=== PATIENT | female | born 1990 | race Caucasian/White ===

== ENCOUNTER 2016-04-26 15:25 | Emergency (ER) | payer MEDICAID ==
[2016-04-26] MEDS ORDERED: DEXAMETHASONE SOD PHOSPHATE 10MG/ML VIAL PO ONE (15:34)
[2016-04-26] MEDS ORDERED: CLINDAMYCIN 150 MG CAP PO ONE (15:34)
[2016-04-26] MEDS ORDERED: IBUPROFEN 600 MG TABLET PO ONE (15:35)
--- NOTE | 2016-04-26 15:42 | Emergency Department Record ---
History of Present Illness - General Chief complaint: Flu Like Symptoms Stated complaint: BODY ACHES Time Seen by Provider: 04/26/16 15:34 Source: Patient, Family Mode of Arrival: Ambulatory Limitations: No limitations - History of Present Illness Initial comments: 26 yo female presents with aches, sore throat and low grade fever starting last night. She noticed swollen glands on the left. No rash. No vomiting or diarrha. She feels tired an her muscles hurt. No cough. No runny nose. She is up to date on her immunizations and she received a flu shot this year. No definite exposures to others with strep or sore throat. Onset/Timin -: Days(s) Location: Generalized Severity: Moderate Severity scale (1-10): 9 Quality: Aching Consistency: Constant Improves with: None Worsens with: None Associated Symptoms: Headaches, Loss of appetite - [place] Coma Scale Eye Response: (4) Open spontaneously Motor Response: (6) Obeys commands Verbal Response: (5) Oriented [place] Total: 15 - Related Data Previous Rx's Medication Instructions Recorded Clindamycin HCl [Cleocin HCl] 300 mg PO QID #28 capsule 04/26/16 Allergies Allergy/AdvReac Type Severity Reaction Status Date / Time No Known Drug Allergies Allergy Verified 01/15/16 14:29 Travel Screening - Travel/Exposure Within Last 30 Days Have you traveled within the last 30 days?: No Review of Systems Constitutional: Reports: Chills, Fever, Malaise. Denies: Weakness Eyes: Denies: Eye discharge, Eye pain, Photophobia ENT: Reports: Throat pain. Denies: Congestion, Epistaxis Respiratory: Denies: Cough, Dyspnea, Hemoptysis, Stridor, Wheezes Cardiovascular: Denies: Chest pain, Palpitations, Syncope Endocrine: Reports: Fatigue Gastrointestinal: Denies: Abdominal pain, Constipation, Diarrhea, Nausea, Vomiting Genitourinary: Denies: Dysuria, Urgency Musculoskeletal: Reports: Myalgia. Denies: Arthralgia, Back pain, Joint swelling, Neck pain Skin: Denies: Bruising, Change in color Neurological: Reports: Headache. Denies: Numbness, Vertigo, Weakness Psychiatric: Denies: Anxiety Hematological/Lymphatic: Denies: Blood Clots, Easy bleeding, Easy bruising, Swollen glands Past Medical History - SOCIAL HISTORY Smoking Status: Never smoker - RESPIRATORY Hx Respiratory Disorders: Yes Comment:: pleurisy - CARDIOVASCULAR Hx Cardio Disorders: No - NEURO Hx Neuro Disorders: No - GI Hx GI Disorders: No - Hx Genitourinary Disorders: No - ENDOCRINE Hx Endocrine Disorders: No Hx Diabetes: No Hx Thyroid Disease: No - MUSCULOSKELETAL Hx Musculoskeletal Disorders: No - PSYCH Hx Psych Problems: Yes Hx Anxiety: Yes - HEMATOLOGY/ONCOLOGY Hx Hematology/Oncology Disorders: No Family Medical History Any Significant Family History?: Yes Hx Resp Disorders: Father, Grandparents Physical Exam - General General Appearance: Alert, Oriented x3, Cooperative, No acute distress, Other ( appears comfortable in no distress, speaks in clear voice, full sentences) Limitations: No limitations - Head Head exam: Atraumatic, Normal inspection - Eye Eye exam: Normal appearance. negative: Conjunctival injection, Periorbital swelling - ENT ENT exam: Mucous membranes moist. negative: Mucous membranes dry, Normal orophraynx Ear exam: Normal external inspection Nasal Exam: Normal inspection. negative: Discharge, Sinus tenderness Mouth exam: Normal external inspection, Tongue normal. negative: Drooling, Muffled voice (clear), Tongue elevation Throat exam: Tonsillar erythema, Tonsillomegaly (left greater than right (mild both sides) no mass or abscess, no soft tissue shift, no pus or exudate), Other (normal uvula, widely patten oral pharynx). negative: Normal inspection, R peritonsillar mass, L peritonsillar mass - Neck Neck exam: Normal inspection, Full ROM, Lymphadenopathy (mild anterior cervical on the left, no palpable nodes on the right;mobile). negative: Meningismus - Respiratory Respiratory exam: Normal lung sounds bilaterally. negative: Decreased breath sounds, Respiratory distress, Rhonchi, Stridor, Wheezes - Cardiovascular Cardiovascular Exam: Normal rhythm, Normal heart sounds, Tachycardia - GI/Abdominal GI/Abdominal exam: Soft. negative: Tenderness - Rectal Rectal exam: Deferred - exam: Deferred - Extremities Extremities exam: Normal inspection, Full ROM, Normal capillary refill. negative: Pedal edema, Tenderness - Back Back exam: Reports: Normal inspection, Full ROM. Denies: Muscle spasm, Rash noted, Tenderness - Neurological Neurological exam: Alert, Normal gait, Oriented X3 - Psychiatric Psychiatric exam: Normal affect, Normal mood. negative: Agitated, Anxious - Skin Skin exam: Dry, Intact, Normal color, Warm. negative: Cyanosis, Diaphoretic, Erythema Course Vital Signs 04/26/16 04/26/16 15:27 15:32 Temperature 97.9 F Pulse Rate [ 129 H Pulse Ox Probe] Respiratory 20 Rate Blood Pressure 142/92 Blood Pressure 142/92 [Left Arm] Pulse Ox 100 - Reevaluation(s) Reevaluation #1: The patient was seen and examined She has mild left tonsillar swelling without mass or abscess, normal uvula and widely patten airway Strep screen was sent Given the body aches Flu swab sent as well 04/26/16 15:46 Reevaluation #2: The strep screen was positive HR was 108 on recheck from arrival 04/26/16 15:50 04/26/16 15:52 Reevaluation #3: The Influenza A and B are negative We discussed home care and reasons to return for a recheck over the weekend if any concerns. 04/26/16 15:56 Reevaluation #4: HR at DC 106. She tolerated the medications well 04/26/16 16:15 Disposition Disposition: Discharge Clinical Impression: Tonsillitis, Strep pharyngitis Disposition: Home, Self-Care Condition: (1) Good Instructions: Tonsillitis (ED), Strep Throat (ED) Additional Instructions: Stay well hydrated You may take Tylenol and/or Motirn as directed for mild pain Take the Clindamycin 4 times daily Return in the next one day if not improved or worse for a recheck if any concerns over the weekend Prescriptions: Clindamycin HCl [Cleocin HCl] 300 mg PO QID #28 capsule Forms: Patient Portal Access Time of Disposition: 15:52
[2016-04-26 15:48] LABS: STREP A SCREEN POSITIVE (NEGATIVE)
[2016-04-26 15:55] LABS: INFLUENZA A NEGATIVE (NEGATIVE); INFLUENZA B NEGATIVE (NEGATIVE)
== END 2016-04-26 16:14 | disposition home or self-care (01) ==
LOC: ER 15:25
DX: J03.00 Acute streptococcal tonsillitis, unspecified (principal); R51 Headache
CPT/HCPCS: 99283 ×2; 87880; 87400; J1100